=== PATIENT | female | born 1960 | race Hispanic/Latino ===

== ENCOUNTER 2020-10-01 10:18 | Emergency (ER) | payer SELFPAY ==
[~2020-10-01] VITALS: Ht 157.5 cm; Wt 95.3 kg
[2020-10-01 10:21] VITALS: BP 150/75
[2020-10-01 11:56] LABS: BASOPHILS % (AUTO) 0.3 % (0.0-5.0); EOSINOPHILS % (AUTO) 0.1 % (0.0-8.0); HEMATOCRIT 41.3 % (36-48); MEAN CORPUSCULAR HEMOGLOBIN 26.8 pg (27.0-33.0); MEAN CORPUSCULAR HGB CONC 32.9 g/dL (32.0-36.0); MEAN CORPUSCULAR VOLUME 81.3 fL (79-99); MONOCYTES % (AUTO) 4.3 % (3.0-13.0); PLATELET COUNT (AUTO) 366 K/uL (130-400); RED BLOOD CELL COUNT(AUTO) 5.08 MIL/uL (4.00-5.50); RED CELL DISTRIBUTION WIDTH 13.3 % (11.0-15.5); WHITE BLOOD COUNT (AUTO) 12.9 K/uL (4.8-10.8)
[2020-10-01 12:08] LABS: CARBON DIOXIDE 28 mmol/L (21-32); CHLORIDE 103 mmol/L (101-111); CREATININE 0.6 mg/dL (0.5-1.5); GLOMERULAR FILTR. RATE CALC 109 mL/min (>60); GLUCOSE,RANDOM 111 mg/dL (70-105); POTASSIUM 3.3 mmol/L (3.5-5.1); SODIUM SERUM 142 mmol/L (136-145); UREA NITROGEN, BLOOD 10 mg/dL (7-18)
[2020-10-01 12:19] LABS: ALANINE AMINOTRANSFERASE 30 U/L (12-78); ALBUMIN 3.7 g/dL (3.5-5.0); ASPARTATE AMINOTRANSFERASE 18 U/L (10-37); BILIRUBIN,TOTAL 0.4 mg/dL (0.2-1.0); CREATINE KINASE, TOTAL 59 U/L (21-232); MYOGLOBIN 20 ng/mL (10-92); TOTAL PROTEIN, SERUM 8.5 g/dL (6.0-8.3); TROPONIN I < 0.04 ng/mL (0.00-0.06)
[2020-10-01 12:23] LABS: ABG HCO3 22.9 mmol/L (21.0-28.0); ABG OXYGEN SATURATION 97.7 % (95.0-99.0); ABG PCO2 33 mmHg (32-45)
[2020-10-01 12:36] LABS: B-TYPE NATRIURETIC PEPTIDE 9 pg/mL (0-100)
[2020-10-01 13:18] VITALS: BP 131/75
[2020-10-01] MEDS ORDERED: PROP40TA7 PO (15:36)
[2020-10-01 15:54] VITALS: BP 137/79
[2020-10-01] MEDS ORDERED: PROPRANOLOL HCL 20 MG TAB PO SCH (16:00)
== END 2020-10-01 17:24 | disposition home or self-care (01) ==
LOC: EDH 10:18
DX: E03.9 Hypothyroidism, unspecified (principal); R06.02 Shortness of breath; R00.0 Tachycardia, unspecified
CPT/HCPCS: 36415; 36600; 71046; 80053; 82550; 82803; 83874; 83880; 84443; 84484; 85025; 93005

== ENCOUNTER 2022-04-30 13:16 | Emergency (ER) | payer BC ==
[~2022-04-30] VITALS: Ht 154.9 cm; Wt 94.8 kg
[~2022-04-30 13:16] MED LIST: ALBU18HF7 IH; BUDE10.22 IH; FOLI1 PO; GABA-529 PO; LEVO50CA4 PO; METH2.5T6 PO; MONT-39 PO; OMEP40CA21 PO; PRED20B PO; PROP40TA7 PO; ROSU5TAB12 PO; TRAM-355 PO; VITAD50000 PO
[2022-04-30 14:31] LABS: BASOPHILS % (AUTO) 0.5 % (0.0-5.0); EOSINOPHILS % (AUTO) 0.6 % (0.0-8.0); HEMATOCRIT 40.8 % (36-48); LYMPHOCYTES % (AUTO) 21.6 % (21.0-51.0); MEAN CORPUSCULAR HEMOGLOBIN 28.2 pg (27.0-33.0); MEAN CORPUSCULAR HGB CONC 32.1 g/dL (32.0-36.0); MEAN CORPUSCULAR VOLUME 87.7 fL (79-99); MONOCYTES % (AUTO) 7.8 % (3.0-13.0); NEUTROPHILS % (AUTO) 68.6 % (40.0-77.0); PLATELET COUNT (AUTO) 361 K/uL (130-400); RED BLOOD CELL COUNT(AUTO) 4.65 MIL/uL (4.00-5.50); RED CELL DISTRIBUTION WIDTH 15.2 % (11.0-15.5); WHITE BLOOD COUNT (AUTO) 10.6 K/uL (4.8-10.8)
[2022-04-30 14:46] LABS: CREATININE 0.7 mg/dL (0.5-1.5); POTASSIUM 4.2 mmol/L (3.5-5.1)
[2022-04-30 14:59] LABS: B-TYPE NATRIURETIC PEPTIDE 19 pg/mL (0-100)
[2022-04-30 15:03] LABS: ALBUMIN 3.5 g/dL (3.5-5.0); TOTAL PROTEIN, SERUM 7.6 g/dL (6.0-8.3)
[2022-04-30] MEDS ORDERED: PRED20TA3 PO (21:19)
[2022-04-30] MEDS ORDERED: ALBU90AE2 IH (21:19)
[2022-04-30] MEDS ORDERED: AZIT500T2 PO (21:19)
[2022-04-30 21:50] VITALS: BP 145/80
== END 2022-04-30 21:55 | disposition home or self-care (01) ==
LOC: EDH 13:38
DX: J44.1 Chronic obstructive pulmonary disease with (acute) exacerbation (principal); F41.9 Anxiety disorder, unspecified; E11.9 Type 2 diabetes mellitus without complications; E03.9 Hypothyroidism, unspecified; M19.90 Unspecified osteoarthritis, unspecified site; Z20.822 Contact with and (suspected) exposure to COVID-19; Z79.899 Other long term (current) drug therapy; Z90.89 Acquired absence of other organs; Z98.890 Other specified postprocedural states; Z88.8 Allergy status to other drugs, medicaments and biological substances
CPT/HCPCS: 99284; 71045; 87635; 84484 ×2; 80053; 83880; 85025; 85378; 87804 ×2; 36415; 93005; C9803

== ENCOUNTER 2022-05-23 04:56 | Emergency (ER) | payer BC ==
[~2022-05-23 04:56] MED LIST changes: +ALBU90AE2 IH; +AMLO5TAB4 PO; +ATEN50TA PO; +ENAL20TA60 PO; +PRED20TA3 PO
[2022-05-23 07:50] VITALS: BP 129/63
== END 2022-05-23 07:50 | disposition home or self-care (01) ==
LOC: EDH 04:56
DX: F41.9 Anxiety disorder, unspecified (principal); I10 Essential (primary) hypertension; M19.90 Unspecified osteoarthritis, unspecified site; E11.9 Type 2 diabetes mellitus without complications; M79.7 Fibromyalgia; Z79.51 Long term (current) use of inhaled steroids; Z79.899 Other long term (current) drug therapy; Z79.52 Long term (current) use of systemic steroids; Z88.5 Allergy status to narcotic agent; Z88.6 Allergy status to analgesic agent
CPT/HCPCS: 99281

== ENCOUNTER 2022-11-25 23:25 | Emergency (ER) | payer BC ==
[~2022-11-25] VITALS: Ht 154.9 cm; Wt 87.1 kg
[2022-11-25 23:35] VITALS: BP 152/71; PULSE 91; RESP 16; O2SAT 97
[2022-11-26] MEDS ORDERED: SOLU-MEDROL 125MG VIAL IM ONE (00:30)
[2022-11-26] MEDS ORDERED: PRED20TA3 PO (00:47)
== END 2022-11-26 01:25 | disposition home or self-care (01) ==
LOC: EDH 23:25
DX: J02.9 Acute pharyngitis, unspecified (principal); M25.511 Pain in right shoulder; M25.512 Pain in left shoulder; M79.7 Fibromyalgia; J44.9 Chronic obstructive pulmonary disease, unspecified; Z79.899 Other long term (current) drug therapy; Z90.89 Acquired absence of other organs; Z98.890 Other specified postprocedural states; Z88.5 Allergy status to narcotic agent; Z88.6 Allergy status to analgesic agent
CPT/HCPCS: 99284; 87880; 96372; J2930